=== PATIENT | female | born 1985 | race Caucasian/White ===

== ENCOUNTER 2018-01-06 17:03 | Emergency (ER) | payer MEDICAID ==
[~2018-01-06] VITALS: Ht 165.1 cm; Wt 93.6 kg
[~2018-01-06 17:03] MED LIST: CYCL-1 PO; MELO-100 PO; SERT50TA PO
[2018-01-06 17:51] LABS: BASOPHILS % (AUTO) 0.2 % (0-1); EOSINOPHILS % (AUTO) 0.3 % (0-6); HEMATOCRIT 39.4 % (35.0-45.0); HEMOGLOBIN 13.3 g/dl (12.0-16.0); LYMPHOCYTES # (AUTO) 1.8 X10'3 (1.1-4.8); LYMPHOCYTES % (AUTO) 17.4 % (21-51); MEAN CORPUSCULAR HEMOGLOBIN 29.3 PG (27.0-31.0); MEAN CORPUSCULAR HGB CONC 33.8 % (33.0-36.5); MEAN CORPUSCULAR VOLUME 86.8 FL (78-98); MEAN PLATELET VOLUME 8.1 FL (7.4-10.4); MONOCYTES # (AUTO) 0.6 X10'3 (0-0.9); MONOCYTES % (AUTO) 5.6 % (2-12); NEUTROPHILS # (AUTO) 7.9 X10'3 (1.8-7.7); NEUTROPHILS % (AUTO) 76.5 % (42-75); PLATELET COUNT 291 X10'3 (140-440); RED BLOOD COUNT 4.54 X10'6 (4.20-5.60); RED CELL DISTRIBUTION WIDTH 12.3 % (11.5-14.5); WHITE BLOOD COUNT 10.3 X10'3 (4.5-11.0)
[2018-01-06 18:00] LABS: INR 0.9 INR; PARTIAL THROMBOPLASTIN TIME 26 SECONDS (22-32); PROTHROMBIN TIME 9.8 SECONDS (9.0-12.0)
[2018-01-06 18:16] LABS: ALANINE AMINOTRANSFERASE 21 U/L (12-78); ALBUMIN 3.5 G/DL (3.4-5.0); ALBUMIN/GLOBULIN RATIO 0.9 (1.1-1.5); ALKALINE PHOSPHATASE 60 IU/L (46-116); ANION GAP 10 (8-16); ASPARTATE AMINO TRANSFERASE 10 U/L (10-37); BILIRUBIN,TOTAL 0.2 MG/DL (0.1-1.0); BLOOD UREA NITROGEN 8 MG/DL (7-18); BUN/CREATININE RATIO 9.8 (6.6-38.0); CHLORIDE 103 MMOL/L (99-107); CREATININE 0.82 MG/DL (0.40-0.90); GLUCOSE 118 MG/DL (70-104); POTASSIUM 3.4 MMOL/L (3.5-5.1); SODIUM 140 MMOL/L (135-145); TOTAL CARBON DIOXIDE 27.4 MMOL/L (24-32); TOTAL PROTEIN 7.2 G/DL (6.4-8.2); eGFR 82 ML/MIN
[2018-01-06 19:15] VITALS: BP 126/75
== END 2018-01-06 19:17 | disposition home or self-care (01) ==
LOC: ER 17:04
DX: R07.89 Other chest pain (principal); Z88.6 Allergy status to analgesic agent; Z79.899 Other long term (current) drug therapy
CPT/HCPCS: 36415; 71045; 80053; 84484; 85025; 85610; 85730; 93005; 99285

== ENCOUNTER 2019-03-20 10:33 | Outpatient (CLI) | payer MEDICAID | END 2019-03-20 23:59 | disposition home or self-care (01) | LOC: RAD 10:33 | DX: R41.3 Other amnesia (principal); G43.909 Migraine, unspecified, not intractable, without status migrainosus; R41.0 Disorientation, unspecified; F31.9 Bipolar disorder, unspecified; F41.9 Anxiety disorder, unspecified | CPT/HCPCS: 95816 ==

== ENCOUNTER 2022-11-15 17:53 | Emergency (ER) | payer MEDICAID ==
[~2022-11-15] VITALS: Ht 165.1 cm; Wt 98.0 kg
[2022-11-15 18:37] LABS: BASOPHILS % (AUTO) 0.4 % (0-1); EOSINOPHILS # (AUTO) 0.1 X10'3 (0-0.9); EOSINOPHILS % (AUTO) 0.8 % (0-6); HEMATOCRIT 39.7 % (35.0-45.0); HEMOGLOBIN 13.4 g/dl (12.0-16.0); LYMPHOCYTES # (AUTO) 2.6 X10'3 (1.1-4.8); LYMPHOCYTES % (AUTO) 22.7 % (21-51); MEAN CORPUSCULAR HEMOGLOBIN 29.6 PG (27.0-31.0); MEAN CORPUSCULAR HGB CONC 33.8 g/dL (33.0-36.5); MEAN CORPUSCULAR VOLUME 87.4 FL (78-98); MONOCYTES # (AUTO) 0.7 X10'3 (0-0.9); MONOCYTES % (AUTO) 5.8 % (2-12); NEUTROPHILS # (AUTO) 8.1 X10'3 (1.8-7.7); NEUTROPHILS % (AUTO) 70.3 % (42-75); PLATELET COUNT 307 X10'3 (140-440); RED BLOOD COUNT 4.54 X10'6 (4.20-5.60); RED CELL DISTRIBUTION WIDTH 13.6 % (11.5-14.5); WHITE BLOOD COUNT 11.5 X10'3 (4.5-11.0)
[2022-11-15 18:44] LABS: GLUCOSE 97 MG/DL (70-104); SODIUM 140 MMOL/L (135-145)
[2022-11-15 18:45] LABS: ALANINE AMINOTRANSFERASE 23 U/L (12-78); ALBUMIN 3.8 G/DL (3.4-5.0); ALBUMIN/GLOBULIN RATIO 1.2 (1.1-1.5); ALKALINE PHOSPHATASE 76 IU/L (46-116); AMYLASE 19 U/L (25-115); ANION GAP 10 (8-16); ASPARTATE AMINO TRANSFERASE 12 U/L (10-37); BILIRUBIN,TOTAL 0.2 MG/DL (0.1-1.0); BLOOD UREA NITROGEN 10 MG/DL (7-18); BUN/CREATININE RATIO 13.3 (10.0-20.0); CHLORIDE 103 MMOL/L (99-107); CREATININE 0.75 MG/DL (0.40-0.90); LIPASE < 50 U/L (73-393); POTASSIUM 3.6 MMOL/L (3.5-5.1); TOTAL CARBON DIOXIDE 27.5 MMOL/L (24-32); TOTAL PROTEIN 7.1 G/DL (6.4-8.2); eGFR 88 ML/MIN
[2022-11-15 19:48] LABS: CLARITY,URINE SLIGHTLY CLOUDY (Clear); COLOR,URINE YELLOW (Yellow); GLUCOSE, URINE NEGATIVE (Neg); KETONES,URINE NEGATIVE (Neg); LEUKOCYTE ESTERASE ,URINE NEGATIVE (Neg); NITRITES, URINE NEGATIVE (Neg); OCCULT BLOOD,URINE SMALL (Neg); PROTEIN,URINE NEGATIVE (Neg); UROBILINOGEN,URINE 0.2 E.U/dL (0.2-1.0)
[2022-11-15 19:50] LABS: URINE HCG NEGATIVE (NEG)
[2022-11-15 19:53] LABS: UA COLLECTION TYPE CLN CATCH MIDSTREAM
[2022-11-15 19:54] LABS: MUCUS STRANDS MANY /LPF (Neg); SQUAMOUS EPITHELIAL CELL,UR FEW /LPF (FEW)
[2022-11-15 19:56] LABS: BACTERIA,URINE FEW /HPF (Neg); RBC,URINE 20-50 /HPF (0-2); WBC,URINE 0-4 /HPF (0-4)
[2022-11-15] MEDS ORDERED: famotidine 20mg tablet PO ONE (22:10)
[2022-11-15] MEDS ORDERED: ondansetron 4mg rapidly disintigrating tab PO ONE (22:10)
[2022-11-15 22:15] VITALS: BP 146/86
[2022-11-15] MEDS ORDERED: FAMO-128 PO (22:57)
[2022-11-15] MEDS ORDERED: ONDA8TAB13 PO (22:57)
== END 2022-11-15 23:07 | disposition home or self-care (01) ==
LOC: ER 17:53
DX: K80.20 Calculus of gallbladder without cholecystitis without obstruction (principal); R10.13 Epigastric pain; R63.0 Anorexia; Z88.5 Allergy status to narcotic agent; Z90.710 Acquired absence of both cervix and uterus
CPT/HCPCS: 36415; 76700; 80053; 81001; 81025; 82150; 83690; 85025; 99284

== ENCOUNTER 2023-09-26 12:45 | Emergency (ER) | payer MEDICAID ==
[~2023-09-26] VITALS: Ht 165.1 cm; Wt 94.5 kg
[~2023-09-26 12:45] MED LIST changes: +FAMO-128 PO; +ONDA8TAB13 PO
[2023-09-26 12:55] VITALS: BP 134/77; PULSE 74; TEMP 97.8; O2SAT 98
[2023-09-26] MEDS ORDERED: ketorolac trometh inj. 60 MG/2 ML VIAL IM ONE (14:05)
[2023-09-26 14:19] VITALS: RESP 17
[2023-09-26] MEDS: ketorolac trometh. 30mg/ml inj. IM ONE (14:19)
[2023-09-26] MEDS ORDERED: NAPR-56 PO (14:24)
== END 2023-09-26 14:29 | disposition home or self-care (01) ==
LOC: ER 12:46
DX: S63.502A Unspecified sprain of left wrist, initial encounter (principal); F41.9 Anxiety disorder, unspecified; Z79.899 Other long term (current) drug therapy; Z88.5 Allergy status to narcotic agent; Z79.2 Long term (current) use of antibiotics; Z90.710 Acquired absence of both cervix and uterus; W19.XXXA Unspecified fall, initial encounter; Y93.89 Activity, other specified; Y92.89 Other specified places as the place of occurrence of the external cause; Y99.8 Other external cause status
CPT/HCPCS: 73110; 96372; 99283; J1885